=== PATIENT | male | born 1965 | race Asian ===

== ENCOUNTER 2024-04-29 16:50 | Emergency (ER) | payer OTHER ==
[~2024-04-29] VITALS: Ht 152.4 cm; Wt 80.2 kg
[2024-04-29] MEDS ORDERED: SODIUM CHLORIDE 0.9% 100 ML ONE (16:58)
[2024-04-29] MEDS ORDERED: IOHEXOL 350 MG/ML 100 ML VIAL ONE (16:58)
[2024-04-29] MEDS ORDERED: TENECTEPLASE 50 MG/10 ML KIT IVP ONE (17:05)
[2024-04-29 17:08] VITALS: TEMP 98.6
[2024-04-29 17:09] LABS: BASOPHILS % (AUTO) 0.7 % (0.0-2.0); EOSINOPHILS % (AUTO) 0.6 % (1.0-6.0); HEMATOCRIT 46.1 % (41-53); HEMOGLOBIN 15.1 g/dL (13.5-17.5); LYMPHOCYTES # (AUTO) 2.5 K/uL (1.0-4.8); LYMPHOCYTES % (AUTO) 22.9 % (22.0-44.0); MEAN CORPUSCULAR HEMOGLOBIN 30.5 pg (26.0-34.0); MEAN CORPUSCULAR HGB CONC 32.7 G/dL (31.0-37.0); MEAN CORPUSCULAR VOLUME 93 fL (80-100); MONOCYTES # (AUTO) 0.8 K/uL (0.1-1.0); MONOCYTES % (AUTO) 7.6 % (2.0-9.0); NEUTROPHILS # (AUTO) 7.4 K/uL (1.8-7.7); NEUTROPHILS % (AUTO) 68.2 % (40.0-70.0); PLATELET COUNT (AUTO) 171 K/uL (150-450); RED BLOOD CELL COUNT(AUTO) 4.94 MIL/uL (4.50-5.90); WHITE BLOOD COUNT (AUTO) 10.9 K/uL (4.5-11.0)
[2024-04-29 17:17] LABS: CALCIUM, TOTAL 8.4 mg/dL (8.8-10.5); CREATININE 2.71 mg/dL (0.60-1.30); POTASSIUM 3.6 mmol/L (3.5-5.1)
[2024-04-29 17:24] LABS: BILIRUBIN,TOTAL 0.5 mg/dL (0.1-1.0); TOTAL PROTEIN, SERUM 6.8 g/dL (6.4-8.2)
[2024-04-29 17:30] LABS: CHOL/HDL RATIO 3.5 (4.2-7.3)
[2024-04-29 17:33] LABS: TROPONIN I-HIGH SENSITIVITY 94 ng/L (<76)
[2024-04-29 18:04] LABS: APPEARANCE,URINE CLEAR (CLEAR); BILIRUBIN,URINE NEGATIVE (NEGATIVE); COLOR,URINE LIGHT YELLOW (YELLOW); GLUCOSE, URINE (UA) >=1000 mg/dL (NEGATIVE); KETONES,URINE NEGATIVE (NEGATIVE); LEUKOCYTE ESTERASE ,URINE NEGATIVE (NEGATIVE); NITRATE,URINE NEGATIVE (NEGATIVE); OCCULT BLOOD,URINE SMALL (NEGATIVE); PH,URINE 5.5 (5.0-8.0); PH,URINE DRUG SCREEN 5.5 (5.0-8.0); PROTEIN,URINE 100-200,SEE CONFIRM mg/dL (NEGATIVE); SPECIFIC GRAVITIY, URINE 1.036 (1.003-1.030); UROBILINOGEN,URINE <=1.0 mg/dL (<=1.0)
[2024-04-29 18:11] LABS: ALCOHOL, URINE DRUG SCREEN NEGATIVE (NEGATIVE); AMPHET/METH SCREEN,URINE NEGATIVE (NEGATIVE); BARBITURATE SCREEN, URINE NEGATIVE (NEGATIVE); BENZODIAZEPINES SCREEN,URINE NEGATIVE (NEGATIVE); CANNABINOID SCREEN,URINE NEGATIVE (NEGATIVE); COCAINE SCREEN,URINE NEGATIVE (NEGATIVE); METHADONE SCREEN, URINE NEGATIVE (NEGATIVE); OPIATE SCREEN,URINE NEGATIVE (NEGATIVE); PHENCYCLIDINE SCREEN,URINE NEGATIVE (NEGATIVE); SULFOSALICYLIC ACID,URINE 1+ (Negative)
[2024-04-29 18:14] LABS: WBC,URINE None Seen /HPF (0-5)
[2024-04-29 18:15] LABS: BACTERIA,URINE None Seen /HPF (None Seen); SQUAMOUS EPITHELIAL CELL,UR None Seen /LPF (None Seen)
[2024-04-29] MEDS: CLOPIDOGREL BISULFATE 75 MG TABLET PO ONE ×2 (19:45→19:57)
[2024-04-29] MEDS: ASPIRIN 81 MG CHEWABLE TABLET PO ONE ×2 (19:45→19:57)
[2024-04-29 23:23] LABS: TROPONIN I-HIGH SENSITIVITY 131 ng/L (<76)
[2024-04-30 00:21] VITALS: BP 128/76; PULSE 116; RESP 16; O2SAT 96
== END 2024-04-30 02:22 | disposition short-term general hospital (02) ==
LOC: EMS 16:50
DX: I63.9 Cerebral infarction, unspecified (principal); G45.9 Transient cerebral ischemic attack, unspecified; I48.91 Unspecified atrial fibrillation; Z79.899 Other long term (current) drug therapy
CPT/HCPCS: 99291; 70496; 71045; 80061; 80053; 81001; 84484; 85025; 85610; 85730; 86850; 86900; 86901; 36415; 70498; 82962; 82948; 93005; 80307; 70450; Q9967; J7050; 81002; J3101